=== PATIENT | male | born 2000 | race African-American/Black ===

== ENCOUNTER 2018-12-17 07:50 | Emergency (ER) | payer OTHER ==
[~2018-12-17] VITALS: Ht 180.3 cm; Wt 59.0 kg
[2018-12-17 07:52] VITALS: BP 135/70; PULSE 81; RESP 17; Ht 180.3 cm; Wt 59.0 kg
[2018-12-17] MEDS ORDERED: KETOROLAC 60 MG INJ IM STA (08:10)
[2018-12-17] MEDS ORDERED: HYDR-4011 PO (08:15)
[2018-12-17] MEDS ORDERED: NAPR-985 PO (08:15)
[2018-12-17] MEDS ORDERED: CYCL10TA7 PO (08:15)
[2018-12-17] MEDS ORDERED: MED4DP PO (08:15)
[2018-12-17] MEDS ORDERED: IBUPROFEN 800 MG TAB PO ONE (08:30)
[2018-12-17] MEDS ORDERED: DEXAMETHASONE 10 MG/ML 1 ML INJ IM ONE (08:30)
[2018-12-17] MEDS ORDERED: DIAZEPAM 5 MG TAB PO ONE (08:30)
--- NOTE | 2018-12-17 08:31 | ERD ---
ER Documentation Chief Complaint Chief Complaint CHRONIC BACK PAIN WORSE TODAY. PT AMBULATORY HPI 18-year-old male presenting with back pain that is worse today. Patient states that he had this pain for the last 2 years however over the last few months it seems to be intensifying. He denies any recent traumatic injury. He denies any numbness or tingling down his leg. He states the pain is worse with movement and is localized to the left lower spinous muscles. He has not taken any medications for pain. Denies any changes in urination or bowel movement. Denies fevers. Denies medical problems. NKDA. Surgical history denies. Social history smokes marijuana daily. ROS All systems reviewed and are negative except as per history of present illness. Medications Home Meds Active Scripts Methylprednisolone* (Medrol* DOSE PACK) 4 Mg/Dose-Pack Tab.ds.pk, 4 MG PO . DIRECTED, #1 PACKET Prov:LISA CLAY PA-C 12/17/18 Cyclobenzaprine Hcl* (Cyclobenzaprine Hcl*) 10 Mg Tablet, 10 MG PO TID, #15 TAB Prov:LISA CLAY PA-C 12/17/18 Naproxen* (Naprosyn*) 500 Mg Tablet, 500 MG PO BID PRN for PAIN AND/OR INFLAMMATION, #30 TAB Prov:LISA CLAY PA-C 12/17/18 Hydrocodone/Acetaminophen ([place] 5-325 Tablet) 1 Each Tablet, 1 TAB PO Q6H PRN for PAIN, #7 TAB Prov:LISA CLAY PA-C 12/17/18 PMhx/Soc Medical and Surgical Hx: pt denies Medical Hx, pt denies Surgical Hx Hx Alcohol Use: No Hx Substance Use: Yes (MARIJUANA) Hx Tobacco Use: No Smoking Status: Current every day smoker FmHx Family History: No diabetes, No coronary disease, No other Physical Exam Vitals Vital Signs Date Temp Pulse Resp B/P (MAP) Pulse Ox O2 O2 Flow FiO2 Time Delivery Rate 12/17/18 98.7 81 17 135/70 97 07:52 (91) Physical Exam GENERAL: The patient is well-appearing, well-nourished, in no acute distress CHEST: Clear to auscultation bilaterally. There are no rales, wheezes or rhonchi. HEART: Regular rate and rhythm. No murmurs, clicks, rubs or gallops. ABDOMEN:Soft, nontender and nondistended. Good bowel sounds. No rebound or guarding. No gross peritonitis. No gross organomegaly or masses. BACK: No midline or flank tenderness. Tender to palpation over the lower paraspinous muscles of the left lower back. No midline tenderness. EXTREMITIES: Equal pulses bilaterally. There is no peripheral clubbing, cyanosis or edema. No focal swelling or erythema. Full range of motion. Grossly neurovascularly intact. NEUROLOGIC: Alert and oriented. Cranial nerves II through XII intact. Motor strength in all 4 extremities with 5 out of 5 strength. Sensation grossly intact. SKIN: There is no apparent rash or petechiae. The skin is warm and dry. Results 24 hrs Current Medications Medications Dose Sig/John Start Time Status Last (Trade) Ordered Route PRN Stop Time Admin Dose Reason Admin 10 mg ONCE ONCE 12/17/18 Dexamethasone IM 08:30 (Decadron) 12/17/18 08:31 Diazepam 5 mg ONCE ONCE 12/17/18 12/17/18 (Valium) PO 08:30 08:21 12/17/18 08:31 Ketorolac 60 mg ONCE STAT 12/17/18 DC Tromethamine IM 08:10 (Toradol) 12/17/18 08:11 Ibuprofen 800 mg ONCE ONCE 12/17/18 12/17/18 (Motrin) PO 08:30 08:22 12/17/18 08:31 Procedures/MDM ER course: Oral ibuprofen and Valium given ED. Patient declined Decadron. MDM: 18-year-old male presenting with back pain. Patient has findings consistent with musculoskeletal strain. I have low suspicion for acute fracture dislocation. I have low suspicion for neuro deficit. I have low suspicion for cauda equina or discitis. Patient is discharged stricter precautions and told to follow-up with primary care within 1-2 days for close evaluation. Patient is told if symptoms change or worsen to return to the ER. All questions answered at discharge Departure Diagnosis: Primary Impression: Back pain Condition: Stable Patient Instructions: Back Pain (Acute Or Chronic) Referrals: [facility] YOU HAVE RECEIVED A MEDICAL SCREENING EXAM AND THE RESULTS INDICATE THAT YOU DO NOT HAVE A CONDITION THAT REQUIRES URGENT TREATMENT IN THE EMERGENCY DEPARTMENT. FURTHER EVALUATION AND TREATMENT OF YOUR CONDITION CAN WAIT UNTIL YOU ARE SEEN IN YOUR DOCTORS OFFICE WITHIN THE NEXT 1-2 DAYS. IT IS YOUR RESPONSIBILITY TO MAKE AN APPOINTMENT FOR FOLOW-UP CARE. IF YOU HAVE A PRIMARY DOCTOR --you should call your primary doctor and schedule an appointment IF YOU DO NOT HAVE A PRIMARY DOCTOR YOU CAN CALL OUR PHYSICIAN REFERRAL HOTLINE AT IF YOU CAN NOT AFFORD TO SEE A PHYSICIAN YOU CAN CHOSE FROM THE FOLLOWING FORMERLY [facility], [facility] CLINICS [facility] [address] [facility] [address] [facility] [address] [facility] [address] [facility] [address] [facility] [address] [facility]. [facility]. [address] Additional Instructions: FOLLOW UP WITH YOUR PRIMARY CARE PHYSICIAN TOMORROW.Return to this facility if you are not improving as expected. LISA CLAY PA-C Dec 17, 2018 08:31
== END 2018-12-17 08:30 | disposition home or self-care (01) ==
LOC: FTE 07:50
DX: M54.9 Dorsalgia, unspecified (principal); F17.210 Nicotine dependence, cigarettes, uncomplicated
CPT/HCPCS: J1100; J1885; Z7502; Z7610; 99283

== ENCOUNTER 2019-03-25 00:07 | Emergency (ER) | payer OTHER ==
[~2019-03-25] VITALS: Wt 60.7 kg
[~2019-03-25 00:07] MED LIST: CYCL10TA7 PO; HYDR-4011 PO; MED4DP PO; NAPR-985 PO
[2019-03-25] MEDS ORDERED: ONDANSETRON (ODT) 4 MG TAB ODT STA (03:01)
[2019-03-25] MEDS ORDERED: ONDA4TAB14 PO (04:06)
[2019-03-25 04:11] VITALS: BP 117/80; PULSE 78; RESP 19
--- NOTE | 2019-03-25 05:09 | ERD ---
ER Documentation Chief Complaint Chief Complaint VOMIT, CHILLS, BODY ACHES X'S 1 DAY HPI 19-year-old male presenting with body aches chills and vomiting. Patient is been going for day. Has mild nausea with a headache. No fevers. Patient also has pain to the right testicle. He denies any penile discharge or new sexual partners. Patient denies any other medical problems, NKDA. Surgical history denies. Social history smokes marijuana daily. ROS All systems reviewed and are negative except as per history of present illness. Medications Home Meds Active Scripts Ondansetron (Ondansetron Odt) 4 Mg Tab.rapdis, 4 MG PO Q6H PRN for NAUSEA AND/OR VOMITING, #10 TAB Prov:LISA CLAY PA-C 03/25/19 Methylprednisolone* (Medrol* DOSE PACK) 4 Mg/Dose-Pack Tab.ds.pk, 4 MG PO . DIRECTED, #1 PACKET Prov:LISA CLAY PA-C 12/17/18 Cyclobenzaprine Hcl* (Cyclobenzaprine Hcl*) 10 Mg Tablet, 10 MG PO TID, #15 TAB Prov:LISA CLAY PA-C 12/17/18 Naproxen* (Naprosyn*) 500 Mg Tablet, 500 MG PO BID PRN for PAIN AND/OR INFLAMMATION, #30 TAB Prov:LISA CLAY PA-C 12/17/18 Hydrocodone/Acetaminophen ([place] 5-325 Tablet) 1 Each Tablet, 1 TAB PO Q6H PRN for PAIN, #7 TAB Prov:LISA CLAY PA-C 12/17/18 Allergies Allergies: Coded Allergies: No Known Allergy (Unverified , 03/25/19) PMhx/Soc Medical and Surgical Hx: pt denies Medical Hx, pt denies Surgical Hx Hx Alcohol Use: No Hx Substance Use: Yes (MARIJUANA) Hx Tobacco Use: No Smoking Status: Never smoker FmHx Family History: No diabetes, No coronary disease, No other Physical Exam Vitals Vital Signs Date Temp Pulse Resp B/P (MAP) Pulse Ox O2 O2 Flow FiO2 Time Delivery Rate 03/25/19 98.0 78 19 117/80 99 Room Air 04:11 (92) 03/25/19 97.8 54 18 123/64 100 00:11 (83) Physical Exam GENERAL: The patient is well-appearing, well-nourished, in no acute distress HEENT: Atraumatic. Conjunctivae are pink. Pupils equal, round, and reactive to light. There is no scleral icterus. Tympanic membranes clear bilaterally. Oropharynx clear. NECK: C-spine is soft and supple. There is no meningismus. There is no cervical lymphadenopathy. CHEST: Clear to auscultation bilaterally. There are no rales, wheezes or rhonchi. HEART: Regular rate and rhythm. No murmurs, clicks, rubs or gallops. ABDOMEN:Soft, nontender and nondistended. Good bowel sounds. No rebound or guarding. No gross peritonitis. No gross organomegaly or masses. Results 24 hrs Current Medications Medications Dose Sig/John Start Time Status Last (Trade) Ordered Route PRN Stop Time Admin Dose Reason Admin Ondansetron 4 mg ONCE STAT 03/25/19 DC 03/25/19 HCl (Zofran ODT 03:01 03:12 Odt) 03/25/19 03:02 Procedures/MDM ER course: Zofran p.o. challenge given ED. M: 19-year-old male presenting with vomiting and chills. I have low suspicion for acute abdominal emergency. Patient is discharged with strict ER precautions and told to follow-up with primary care. I do not feel there is a further indicated work-up for patient. Patient be discharged with supportive medications. Patient is told symptoms change or worsen to follow-up with primary care and to return the ER. All questions answered at discharge Departure Diagnosis: Primary Impression: Vomiting Condition: Stable Patient Instructions: Vomiting (4Y-Adult) Referrals: [facility] YOU HAVE RECEIVED A MEDICAL SCREENING EXAM AND THE RESULTS INDICATE THAT YOU DO NOT HAVE A CONDITION THAT REQUIRES URGENT TREATMENT IN THE EMERGENCY DEPARTMENT. FURTHER EVALUATION AND TREATMENT OF YOUR CONDITION CAN WAIT UNTIL YOU ARE SEEN IN YOUR DOCTORS OFFICE WITHIN THE NEXT 1-2 DAYS. IT IS YOUR RESPONSIBILITY TO MAKE AN APPOINTMENT FOR FOLOW-UP CARE. IF YOU HAVE A PRIMARY DOCTOR --you should call your primary doctor and schedule an appointment IF YOU DO NOT HAVE A PRIMARY DOCTOR YOU CAN CALL OUR PHYSICIAN REFERRAL HOTLINE AT IF YOU CAN NOT AFFORD TO SEE A PHYSICIAN YOU CAN CHOSE FROM THE FOLLOWING [facility] CLINICS [facility] [address] [facility] [address] [facility] [facility] [address] [facility] [address] [facility]. [facility] [address] [facility]. [facility] [address] Additional Instructions: FOLLOW UP WITH YOUR PRIMARY CARE PHYSICIAN TOMORROW.Return to this facility if you are not improving as expected. LISA CLAY PA-C March 25, 2019 05:09
== END 2019-03-25 04:12 | disposition home or self-care (01) ==
LOC: FTE 00:07
DX: R11.10 Vomiting, unspecified (principal)
CPT/HCPCS: 99283